=== PATIENT | female | born 1970 | race Caucasian/White ===

== ENCOUNTER 2023-03-29 15:00 | Outpatient (RCR) | payer MEDICAID, SELFPAY | END 2023-05-26 13:55 | disposition home or self-care (01) | LOC: HO.PTCHIC 15:00 | PROVIDERS: PCP Physician Assistant; Visit Provider Physician Assistant | DX: M54.50 Low back pain, unspecified (principal); M25.552 Pain in left hip | CPT/HCPCS: 97110; 97140; 97161; 97530 ==

== ENCOUNTER 2023-07-21 10:00 | Outpatient (RCR) | payer MEDICAID, SELFPAY | END 2023-07-21 13:16 | disposition home or self-care (01) | LOC: HO.PT 10:00 | PROVIDERS: PCP Physician Assistant; Visit Provider Orthopaedic Surgery | DX: M16.12 Unilateral primary osteoarthritis, left hip (principal) | CPT/HCPCS: 97110; 97161; 97530 ==

== ENCOUNTER 2024-02-26 10:00 | Outpatient (RCR) | payer OTHER, SELFPAY | END 2024-02-26 11:08 | disposition home or self-care (01) | LOC: HO.PT 10:00 | PROVIDERS: PCP Physician Assistant; Visit Provider Orthopaedic Surgery | DX: Z96.641 Presence of right artificial hip joint (principal) | CPT/HCPCS: 97110; 97140; 97161; 97530 ==